=== PATIENT | female | born 2000 | race Caucasian/White ===

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

== ENCOUNTER 2022-10-03 08:05 | Emergency (ER) | payer OTHER, SELFPAY ==
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
[2022-10-03 08:17] VITALS: BP 139/90; PULSE 105; RESP 20; TEMP 36.8; O2SAT 97
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
[2022-10-03] MEDS: IBUPROFEN 600 MG TABLET PO (08:52)
[2022-10-03 09:05] VITALS: BP 129/95; PULSE 92; RESP 20; TEMP 36.7; O2SAT 98
== END 2022-10-03 09:06 | disposition home or self-care (01) ==
PROVIDERS: Emergency Provider Emergency Medicine
DX: S90.812A Abrasion, left foot, initial encounter (principal); F32.A Depression, unspecified; F41.9 Anxiety disorder, unspecified; W26.8XXA Contact with other sharp object(s), not elsewhere classified, initial encounter
CPT/HCPCS: 73610; 99283; A9270

== ENCOUNTER 2022-12-27 11:16 | Outpatient (CLI) | payer OTHER, SELFPAY ==
[2022-12-27 12:29] LABS: Alanine Aminotransferase 31 U/L (14-59); Alkaline Phosphatase 68 U/L (46-116); Anion Gap 6 mmol/L (8-16); Aspartate Amino Transferase 15 U/L (15-37); Bilirubin,Total 0.6 mg/dL (0.00-1.00); Blood Urea Nitrogen 10 mg/dL (7-18); Calcium 9.7 mg/dL (8.5-10.1); Carbon Dioxide 32 mmol/L (21-32); Chloride 102 mmol/L (98-108); Estimated Glomerular Filt Rate > 60; Free T4 Free Thyroxine 0.86 ng/dL (0.76-1.46); Glucose 84 mg/dL (70-99); Osmolality Calculated 288 mOsm/kg (285-295); Potassium 3.6 mmol/L (3.5-5.1); Sodium 140 mmol/L (136-145); Thyroid Stimulating Hormone 0.23 uIU/mL (0.36-3.74); Total Protein 7.5 g/dL (6.4-8.2); Vitamin B12 298 pg/mL (193-986)
[2022-12-30 11:29] LABS: Vitamin D 25 Hydroxy 13 ng/mL (30-100)
== END 2022-12-27 11:17 | disposition home or self-care (01) ==
LOC: CHSLAB 11:18
PROVIDERS: PCP Nurse Practitioner Family; Visit Provider Nurse Practitioner Family
DX: F41.8 Other specified anxiety disorders (principal); Z01.83 Encounter for blood typing; Z79.899 Other long term (current) drug therapy
CPT/HCPCS: 36415; 80053; 82306; 82607; 84439; 84443; 86850; 86900; 86901

== ENCOUNTER 2023-02-04 14:26 | Emergency (ER) | payer OTHER, SELFPAY ==
[2023-02-04 14:51] VITALS: BP 133/86; PULSE 120; RESP 16; TEMP 36.7; O2SAT 100
--- NOTE | 2023-02-04 15:23 | ED.URI ---
HPI - URI/Sore Throat General Chief Complaint: Upper Respiratory Infection Stated Complaint: headache,lethargic Time Seen by Provider: 02/04/23 15:00 Source: patient Mode of arrival: ambulatory Limitations: no limitations History of Present Illness HPI Narrative: Kecia is a 23-year-old female patient presenting to the clinic today with complaints headache and feeling lethargy. She reports she is also having dizziness at times. States this has been going on for the last 3 to 4 days. Has taken ibuprofen and Tylenol for her headache and this has only get brought her minimal relief. Denies any nausea or photosensitivity associated with the headache. Headache is to the top of her head. She denies any known fever or chills. MD elicited complaint: sore throat and nasal congestion Related Data Home Medications Medication Instructions Recorded Confirmed hydroxyzine HCl 100 mg tablet 100 mg PO DAILY 12/27/22 02/04/23 Allergies Allergy/AdvReac Type Severity Reaction Status Date / Time No Known Allergies Allergy Unknown Verified 02/04/23 14:47 Review of Systems Review of Systems: Pertinent positives per HPI. Patient denies any fever, chills, rash, visual changes, cough, shortness of breath, chest pain, palpitations, nausea, vomiting, diarrhea, constipation, abdominal pain, or any urinary issues. PMFSH Past Medical History Medical History Anxiety Depression No pertinent past medical history Social History Social History Smoking status: Never smoker Gender identity (if verbalized by the patient): Female Comments At the time of my signature, I reviewed and agree with the nursing past medical, surgical, social, and family history. There is no relevant family history pertinent to the patient complaint. Exam Narrative: General: Well-developed, well nourished, in no apparent distress Head: Normocephalic, atraumatic Eyes: Pupils equally round and reactive to light bilaterally, EOM intact, sclera and conjunctive clear, no discharge, lids normal Ears: TMs intact and clear, ear canals clear, no drainage, grossly hearing normal. Nose: Nares patent, clear nasal discharge, no inflammation, no sinus tenderness. Mouth: Oral pharynx without lesions or masses, good dentition, MMM. Neck: Supple, trachea midline, no enlargement of anterior or posterior cervical nodes, no thyroid masses or goiter palpable. Cardio: Regular rate and rhythm, s1 and s2 normal, no murmur appreciated. Resp: Clear to auscultation bilaterally, no rhonchi, rales, wheezing or rubs Course Course Emergency Course: Portions of this record may have been created with voice recognition software. Level of Care: Express Care Visit Vital Signs Vital signs: Vital Signs Temperature 36.7 C 02/04/23 14:51 Pulse Rate 120 H 02/04/23 14:51 Respiratory Rate 16 02/04/23 14:51 Blood Pressure 133/86 02/04/23 14:51 Pulse Oximetry 100 02/04/23 14:51 Temperature 36.7 C 02/04/23 14:51 Pulse Rate 120 H 02/04/23 14:51 Respiratory Rate 16 02/04/23 14:51 Blood Pressure 133/86 02/04/23 14:51 Pulse Oximetry 100 02/04/23 14:51 Vital signs reviewed MDM - URI/Sore Throat MDM Narrative Medical decision making narrative: At the time of visit patient is resting comfortably on the exam table. Patient appears to be nontoxic. COVID and influenza testing was negative. I suspect patient has acute headache with fatigue-likely due to viral syndrome. Supportive measures were discussed with the patient and they voiced understanding discharge instructions and agrees to treatment plan. Return precautions reviewed Differential Diagnosis Differential diagnosis: Likely sinusitis, viral infection, influenza and pharyngitis Discharge Plan Discharge Clinical Impression: Acute headache, Fatigue Patient Disposition: [place]
== END 2023-02-04 15:34 | disposition home or self-care (01) ==
PROVIDERS: Emergency Provider Nurse Practitioner Family; PCP Family Medicine
DX: R51.9 Headache, unspecified (principal); R53.83 Other fatigue; Z20.822 Contact with and (suspected) exposure to COVID-19
CPT/HCPCS: 87426; 87804; 99213; C9803; G0463

== ENCOUNTER 2023-02-13 11:21 | Outpatient (CLI) | payer OTHER, SELFPAY ==
[2023-02-13 12:44] LABS: Free T4 Free Thyroxine 0.97 ng/dL (0.76-1.46); Thyroid Stimulating Hormone 0.55 uIU/mL (0.36-3.74)
[2023-02-16 03:27] LABS: Total Triiodothyronine (T3) 116.5 ng/dL (76-181)
== END 2023-02-13 11:22 | disposition home or self-care (01) ==
LOC: CHSLAB 11:22
PROVIDERS: PCP Nurse Practitioner Family; Visit Provider Nurse Practitioner Family
DX: R79.89 Other specified abnormal findings of blood chemistry (principal)
CPT/HCPCS: 36415; 84439; 84443; 84480

== ENCOUNTER 2023-03-16 11:41 | Outpatient (CLI) | payer OTHER, SELFPAY ==
[2023-03-16 12:40] LABS: Alanine Aminotransferase 17 U/L (14-59); Albumin Level 4.2 g/dL (3.4-5.0); Alkaline Phosphatase 69 U/L (46-116); Anion Gap 14 mmol/L (8-16); Aspartate Amino Transferase 12 U/L (15-37); Bilirubin,Total 0.6 mg/dL (0.00-1.00); Blood Urea Nitrogen 11 mg/dL (7-18); Carbon Dioxide 21 mmol/L (21-32); Chloride 108 mmol/L (98-108); Estimated Glomerular Filt Rate > 60; Glucose 105 mg/dL (70-99); Osmolality Calculated 295 mOsm/kg (285-295); Potassium 3.6 mmol/L (3.5-5.1); Sodium 143 mmol/L (136-145); Total Protein 7.5 g/dL (6.4-8.2)
[2023-03-16 12:45] LABS: Magnesium 1.8 mg/dL (1.8-2.4)
== END 2023-03-16 11:42 | disposition home or self-care (01) ==
LOC: CHSLAB 11:42
PROVIDERS: PCP Nurse Practitioner Family; Visit Provider Nurse Practitioner Family
DX: E87.6 Hypokalemia (principal)
CPT/HCPCS: 36415; 80053; 83735